=== PATIENT | female | born 1965 | race African-American/Black ===

== ENCOUNTER 2021-05-29 23:23 | Inpatient (IN) | payer MEDICAID ==
[~2021-05-29] VITALS: Ht 165.1 cm; Wt 95.0 kg
[2021-05-30] MEDS: ALBUTEROL (0.083%) 2.5MG/3ML NEB HHN SCH ×2 (00:28→00:58)
[2021-05-30] MEDS ORDERED: METHYLPREDNISOLONE SOD SUCC 125 MG/2 ML VIAL IV STA (00:41)
[2021-05-30] MEDS ORDERED: IPRATROPIUM BROMIDE (0.02%) 0.5MG/2.5ML NEB HHN STA (00:41)
[2021-05-30] MEDS ORDERED: MAGNESIUM 2 G PREMIX 50 ML IV ONE (00:45)
[2021-05-30 01:10] LABS: BG BASE EXCESS 1.8 mmol/L (-2.0-2.0); BG CARBOXYHEMOGLOBIN 0.5 % (0.5-1.5); BG DEOXYHEMOGLOBIN 3.6 % (0.0-5.0); BG FRACTION INSPIRED OXYGEN 50; BG METHEMOGLOBIN 0.3 % (0.0-1.5); BG OXYGEN SATURATION 96.4 % (92.0-98.5); BG OXYHEMOGLOBIN 95.6 % (94.0-97.0); BG PCO2 50.4 mmHg (35.0-45.0); BG PH 7.362 (7.350-7.450); BG PO2 80.8 mmHg (75.0-100.0); BG SAMPLE SITE RIGHT RADIAL; BG TOTAL HEMOGLOBIN 12.6 g/dL (12.0-18.0); BG VENT MODE MASK - AEROSOL
[2021-05-30 01:24] LABS: BASOPHILS % 0.5 % (0.0-2.0); EOSINOPHILS % 1.5 % (0.0-5.0); HEMATOCRIT. 36.6 % (36.0-48.0); HEMOGLOBIN. 12.2 g/dL (12.0-16.0); LYMPHOCYTES % 17.8 % (20.0-50.0); MEAN CORPUSCULAR HEMOGLOBIN 28.7 pg (28.0-32.0); MEAN CORPUSCULAR VOLUME 85.8 fL (81.0-99.0); MEAN PLATELET VOLUME 9.5 fl (7.4-10.4); MONOCYTES % 9.3 % (2.0-8.0); NEUTROPHILS % 70.9 % (40.0-76.0); PLATELET 176 x1000/uL (130-400); RED BLOOD CELL COUNT 4.26 mill/uL (4.2-5.4); RED CELL DISTRIBUTION WIDTH 14.5 % (11.6-14.6)
[2021-05-30 01:25] LABS: CHLORIDE 107 mEq/L (98-107)
[2021-05-30] MEDS ORDERED: IOHEXOL-350 100 ML BOTTLE ONE (05:05)
[2021-05-30] MEDS ORDERED: ONDANSETRON HCL 4MG/2ML INJ IV PRN (08:00)
[2021-05-30] MEDS ORDERED: ACETAMINOPHEN 325MG TABLET PO PRN (08:00)
[2021-05-30 11:08] VITALS: BP 130/80
[2021-05-30] MEDS ORDERED: CARV12.545 MT (11:33)
[2021-05-30] MEDS ORDERED: LOSA50TA41 MT (11:33)
[2021-05-30] MEDS ORDERED: SERT25TA74 MT (11:33)
[2021-05-30] MEDS ORDERED: LORA10TA7 MT (11:33)
[2021-05-30 12:00] VITALS: BP 129/77
[2021-05-30] MEDS ORDERED: *PATIENT'S OWN MEDICATION STORAGE XX SCH (12:00)
[2021-05-30] MEDS: IPRATROPIUM/ALBUTEROL 0.5-3(2.5)MG/3ML NEB HHN SCH ×3 (12:57→21:12)
[2021-05-30 16:00] VITALS: BP 136/72
[2021-05-30] MEDS: METHYLPREDNISOLONE SOD SUCC 40 MG/ML VIAL IV SCH ×3 (17:55→23:17)
[2021-05-30] MEDS: ENOXAPARIN 30MG/0.3ML SYR SUBCUT SCH (18:48)
[2021-05-30 20:00] VITALS: BP 134/75
[2021-05-30] MEDS: GUAIFENESIN 600MG ER TABLET PO SCH (21:24)
[2021-05-30] MEDS: FAMOTIDINE 20MG TABLET PO SCH (21:24)
[2021-05-30] MEDS: CARVEDILOL 12.5MG TABLET PO SCH (21:24)
[2021-05-30 22:00] VITALS: BP 142/72
[2021-05-31] VITALS: BP 107/56
[2021-05-31 02:00] VITALS: BP 102/59
[2021-05-31 04:00] VITALS: BP 112/66
[2021-05-31] MEDS: IPRATROPIUM/ALBUTEROL 0.5-3(2.5)MG/3ML NEB HHN SCH ×3 (04:52→09:00)
[2021-05-31] MEDS: ENOXAPARIN 30MG/0.3ML SYR SUBCUT SCH (06:06)
[2021-05-31 08:00] VITALS: BP 98/49
[2021-05-31] MEDS: CARVEDILOL 12.5MG TABLET PO SCH (08:46)
[2021-05-31] MEDS ORDERED: SERTRALINE HCL 25MG TABLET PO SCH (09:00)
[2021-05-31] MEDS ORDERED: LORATADINE 10MG TABLET PO SCH (09:00)
[2021-05-31] MEDS ORDERED: LOSARTAN POTASSIUM 50 MG TABLET PO SCH (09:00)
[2021-05-31] MEDS: GUAIFENESIN 600MG ER TABLET PO SCH (09:12)
[2021-05-31] MEDS: FAMOTIDINE 20MG TABLET PO SCH (09:12)
[2021-05-31] MEDS: METHYLPREDNISOLONE SOD SUCC 40 MG/ML VIAL IV SCH (09:12)
[2021-05-31 09:41] LABS: CHLORIDE 108 mEq/L (98-107)
[2021-05-31] MEDS ORDERED: P20 MT (09:42)
[2021-05-31 09:43] LABS: HEMATOCRIT. 35.9 % (36.0-48.0); HEMOGLOBIN. 11.7 g/dL (12.0-16.0); LYMPHOCYTES % 10.3 % (20.0-50.0); MEAN CORPUSCULAR HEMOGLOBIN 28.2 pg (28.0-32.0); MEAN CORPUSCULAR VOLUME 86.3 fL (81.0-99.0); MEAN PLATELET VOLUME 9.8 fl (7.4-10.4); MONOCYTES % 5.4 % (2.0-8.0); NEUTROPHILS % 84.3 % (40.0-76.0); PLATELET 175 x1000/uL (130-400); RED BLOOD CELL COUNT 4.15 mill/uL (4.2-5.4); RED CELL DISTRIBUTION WIDTH 14.5 % (11.6-14.6)
[2021-05-31 10:19] VITALS: BP 120/64
== END 2021-05-31 12:39 | disposition home or self-care (01) | DRG 133 ==
LOC: ER 23:23 → 3WST 05-30 02:48 → ENRESERV 05-30 08:53
PROVIDERS: ADMIT Internal Medicine; ATTEND Internal Medicine
DX: J96.02 Acute respiratory failure with hypercapnia (principal); K76.0 Fatty (change of) liver, not elsewhere classified; J45.901 Unspecified asthma with (acute) exacerbation; E66.9 Obesity, unspecified; F12.90 Cannabis use, unspecified, uncomplicated; I10 Essential (primary) hypertension; Z82.49 Family history of ischemic heart disease and other diseases of the circulatory system; Z90.710 Acquired absence of both cervix and uterus; Z68.34 Body mass index [BMI] 34.0-34.9, adult
CPT/HCPCS: 36415; 36600; 71045; 71275; 80048; 80053; 82375; 82805; 83880; 84484; 85025; 85379; 93005; 94640; 94644; 99291; J1650; J2920; J2930; J3475; Q9967